=== PATIENT | female | born 1960 | race African-American/Black ===

== ENCOUNTER 2017-06-01 13:55 | Emergency (ER) | payer MEDICAID ==
[~2017-06-01] VITALS: Ht 154.9 cm; Wt 61.0 kg
[~2017-06-01 13:55] MED LIST: ALBU6.7H2 IH; ASCO500C15 PO; ATROV IH; HYDR12.54 PO; MOME13HF2 IH; [UNRECOGNIZED DRUG - REMARK]
[2017-06-01] MEDS ORDERED: IPRATROPIUM/ALBUTEROL 0.5-3(2.5)MG/3ML NEB HHN ONE ×2 (15:00→15:45)
[2017-06-01] MEDS ORDERED: METHYLPREDNISOLONE SOD SUCC 125 MG/2 ML VIAL IM ONE (15:00)
[2017-06-01 16:10] VITALS: BP 135/87
[2017-06-01] MEDS ORDERED: IBUPROFEN 600MG TABLET PO ONE (16:15)
== END 2017-06-01 17:44 | disposition home or self-care (01) ==
LOC: ER 14:52
DX: J45.901 Unspecified asthma with (acute) exacerbation (principal); Z88.0 Allergy status to penicillin; K21.9 Gastro-esophageal reflux disease without esophagitis; I10 Essential (primary) hypertension; F17.200 Nicotine dependence, unspecified, uncomplicated
CPT/HCPCS: 71010; 94640; 96372; 99283; J2930; Z7610; J7620

== ENCOUNTER 2017-06-17 14:54 | Emergency (ER) | payer MEDICAID ==
[~2017-06-17] VITALS: Ht 154.9 cm; Wt 63.0 kg
[2017-06-17] MEDS ORDERED: IPRATROPIUM BROMIDE (0.02%) 0.5MG/2.5ML NEB HHN STA (15:55)
[2017-06-17] MEDS ORDERED: ALBUTEROL (0.083%) 2.5MG/3ML NEB HHN STA (15:55)
[2017-06-17] MEDS ORDERED: PREDNISONE 20MG TABLET PO STA (15:55)
[2017-06-17 18:22] VITALS: BP 122/70
== END 2017-06-17 18:56 | disposition home or self-care (01) ==
LOC: ER 14:54
DX: J45.901 Unspecified asthma with (acute) exacerbation (principal); I10 Essential (primary) hypertension; Z88.0 Allergy status to penicillin
CPT/HCPCS: 71010; 81025; 94640; 99283; J7512; J7611; Z7610

== ENCOUNTER 2017-09-27 13:06 | Emergency (ER) | payer MEDICAID ==
[~2017-09-27] VITALS: Ht 157.5 cm; Wt 63.0 kg
[~2017-09-27 13:06] MED LIST changes: -ALBU6.7H2 IH; +ALBU6.7H3 IH
[2017-09-27] MEDS ORDERED: IPRATROPIUM/ALBUTEROL 0.5-3(2.5)MG/3ML NEB HHN ONE ×2 (14:30→17:15)
[2017-09-27 14:48] LABS: HEMATOCRIT. 43.5 % (36.0-48.0); HEMOGLOBIN. 14.9 g/dL (12.0-16.0); MEAN CORPUSCULAR HEMOGLOBIN 31.2 pg (28.0-32.0); MEAN CORPUSCULAR VOLUME 91.3 fL (81.0-99.0); PLATELET 243 x1000/uL (130-400); RED BLOOD CELL COUNT 4.77 mill/uL (4.2-5.4); RED CELL DISTRIBUTION WIDTH 13.7 % (11.6-14.6)
[2017-09-27 14:51] LABS: CHLORIDE 108 mEq/L (98-107)
[2017-09-27 14:57] LABS: CARBON DIOXIDE 23 mEq/L (21-32)
[2017-09-27 15:39] LABS: PLATELET ESTIMATE NORMAL
[2017-09-27 18:00] VITALS: BP 123/68
== END 2017-09-27 18:14 | disposition home or self-care (01) ==
LOC: ER 14:49
DX: I10 Essential (primary) hypertension (principal); J20.8 Acute bronchitis due to other specified organisms; J44.0 Chronic obstructive pulmonary disease with (acute) lower respiratory infection; Z88.0 Allergy status to penicillin
CPT/HCPCS: 36415; 71010; 80048; 85007; 85027; 94640; 99285; J7620; Z7610

== ENCOUNTER 2017-11-13 20:56 | Emergency (ER) | payer MEDICAID ==
[~2017-11-13] VITALS: Ht 157.5 cm; Wt 66.0 kg
[2017-11-13 22:53] VITALS: BP 174/120
== END 2017-11-14 02:00 | disposition left against medical advice (07) ==
LOC: ER 20:56
DX: R06.02 Shortness of breath (principal); Z53.21 Procedure and treatment not carried out due to patient leaving prior to being seen by health care provider

== ENCOUNTER 2017-11-14 19:49 | Emergency (ER) | payer MEDICAID ==
[~2017-11-14] VITALS: Ht 157.5 cm; Wt 65.0 kg
[2017-11-14] MEDS ORDERED: IPRATROPIUM/ALBUTEROL 0.5-3(2.5)MG/3ML NEB HHN ONE (23:00)
[2017-11-14] MEDS ORDERED: ALBUTEROL (0.083%) 2.5MG/3ML NEB HHN NR (23:09)
[2017-11-14] MEDS ORDERED: METHYLPREDNISOLONE SOD SUCC 125 MG/2 ML VIAL IV NR (23:09)
[2017-11-14] MEDS ORDERED: IPRATROPIUM BROMIDE (0.02%) 0.5MG/2.5ML NEB HHN NR (23:09)
[2017-11-14] MEDS ORDERED: IPRATROPIUM/ALBUTEROL 0.5-3(2.5)MG/3ML NEB HHN NR (23:15)
[2017-11-14] MEDS ORDERED: ALBUTEROL (0.5%) 2.5MG/0.5ML NEB HHN ONE (23:16)
[2017-11-14] MEDS ORDERED: ALBUTEROL (0.083%) 2.5MG/3ML NEB ONE (23:17)
[2017-11-14] MEDS ORDERED: IPRATROPIUM/ALBUTEROL 0.5-3(2.5)MG/3ML NEB ONE (23:17)
[2017-11-14 23:18] LABS: CHLORIDE 109 mEq/L (98-107)
[2017-11-14 23:23] LABS: BASOPHILS % 0.7 % (0.0-2.0); EOSINOPHILS % 0.7 % (0.0-5.0); HEMATOCRIT. 41.2 % (36.0-48.0); HEMOGLOBIN. 14.4 g/dL (12.0-16.0); LYMPHOCYTES % 8.2 % (20.0-50.0); MEAN CORPUSCULAR HEMOGLOBIN 31.2 pg (28.0-32.0); MEAN CORPUSCULAR VOLUME 89.6 fL (81.0-99.0); MEAN PLATELET VOLUME 8.1 fl (7.4-10.4); MONOCYTES % 10.4 % (2.0-8.0); PLATELET 331 x1000/uL (130-400); RED CELL DISTRIBUTION WIDTH 13.8 % (11.6-14.6)
[2017-11-14 23:27] LABS: PROTHROMBIN TIME 10.3 sec (9.4-11.6)
[2017-11-15] MEDS ORDERED: IPRATROPIUM/ALBUTEROL 0.5-3(2.5)MG/3ML NEB HHN ONE ×2 (01:00→05:45)
[2017-11-15 01:13] LABS: CLARITY URINE CLOUDY (CLEAR); COLOR URINE DARK YELLOW (YELLOW); KETONES URINE TRACE (NEGATIVE); LEUKOCYTE ESTERASE URINE NEGATIVE (NEGATIVE); NITRITE URINE NEGATIVE (NEGATIVE); OCCULT BLOOD URINE NEGATIVE (NEGATIVE); PROTEIN URINE 1+ (NEGATIVE); SPECIFIC GRAVITY URINE 1.034 (1.005-1.030)
[2017-11-15] MEDS ORDERED: FAMOTIDINE 20MG/2ML VIAL IV NR (01:15)
[2017-11-15] MEDS ORDERED: MAGNESIUM 2 G PREMIX 50 ML IV NR (01:15)
[2017-11-15] MEDS: AZITHROMYCIN 500 MG TABLET PO NR (01:28)
[2017-11-15 05:50] VITALS: BP 141/90
== END 2017-11-15 06:32 | disposition home or self-care (01) ==
LOC: ER 21:14
DX: J45.909 Unspecified asthma, uncomplicated (principal); N39.0 Urinary tract infection, site not specified; I10 Essential (primary) hypertension; F17.200 Nicotine dependence, unspecified, uncomplicated; Z88.0 Allergy status to penicillin
CPT/HCPCS: 36415; 71045; 80053; 81001; 85025; 85610; 87804; 94640; 96365; 96375; 99285; J2930; J7030; J7620; Z7610; J7611

== ENCOUNTER 2017-11-15 23:39 | Emergency (ER) | payer MEDICAID ==
[~2017-11-15] VITALS: Ht 157.5 cm; Wt 66.0 kg
[2017-11-16] MEDS ORDERED: ALBUTEROL (0.083%) 2.5MG/3ML NEB HHN STA (03:35)
[2017-11-16] MEDS ORDERED: IPRATROPIUM BROMIDE (0.02%) 0.5MG/2.5ML NEB HHN STA (03:35)
[2017-11-16] MEDS ORDERED: IPRATROPIUM/ALBUTEROL 0.5-3(2.5)MG/3ML NEB ONE (04:04)
[2017-11-16] MEDS ORDERED: ALBUTEROL (0.5%) 2.5MG/0.5ML NEB HHN ONE (04:04)
[2017-11-16 07:30] VITALS: BP 165/95
[2017-11-16] MEDS ORDERED: IBUPROFEN 600MG TABLET PO ONE (07:30)
== END 2017-11-16 07:48 | disposition home or self-care (01) ==
LOC: ER 23:39
DX: J45.901 Unspecified asthma with (acute) exacerbation (principal); R11.0 Nausea; R51 Headache; I10 Essential (primary) hypertension; Z88.0 Allergy status to penicillin
CPT/HCPCS: 71045; 94640; 99283; J3475; J3490; J7611; J7620

== ENCOUNTER 2018-02-01 01:20 | Emergency (ER) | payer MEDICAID ==
[~2018-02-01] VITALS: Ht 154.9 cm; Wt 64.0 kg
[2018-02-01 01:51] VITALS: BP 145/93
[2018-02-01] MEDS ORDERED: CYCLOBENZAPRINE 10MG TABLET PO ONE (07:45)
[2018-02-01] MEDS ORDERED: DEXAMETHASONE 10 MG/ML VIAL IM ONE (07:45)
[2018-02-01] MEDS ORDERED: KETOROLAC 60MG/2ML VIAL IM ONE (07:45)
== END 2018-02-01 08:01 | disposition home or self-care (01) ==
LOC: ER 02:19
DX: M54.5 Low back pain (principal); I10 Essential (primary) hypertension; J45.909 Unspecified asthma, uncomplicated; Z88.0 Allergy status to penicillin
CPT/HCPCS: 99281; Z7610; J1100; J1885

== ENCOUNTER 2018-12-24 05:08 | Emergency (ER) | payer MEDICAID ==
[~2018-12-24] VITALS: Ht 157.5 cm; Wt 65.0 kg
[~2018-12-24 05:08] MED LIST changes: -ALBU6.7H3 IH; +ALBU6.7H9 IH
[2018-12-24 05:26] VITALS: BP 165/103
== END 2018-12-24 08:26 | disposition left against medical advice (07) ==
LOC: ER 05:08
DX: Z53.21 Procedure and treatment not carried out due to patient leaving prior to being seen by health care provider (principal)

== ENCOUNTER 2019-01-12 06:40 | Emergency (ER) | payer MEDICAID ==
[~2019-01-12] VITALS: Ht 160 cm; Wt 64.0 kg
[2019-01-12] MEDS ORDERED: SODIUM CHLORIDE 0.9% 1,000 ML IV ONE (11:14)
[2019-01-12] MEDS ORDERED: ONDANSETRON HCL 4MG/2ML INJ IV STA (11:14)
[2019-01-12] MEDS ORDERED: MORPHINE SULFATE 4 MG/ML CPJ (NOT FOR IM USE) IV STA (11:14)
[2019-01-12 12:29] LABS: CHLORIDE 113 mEq/L (98-107)
[2019-01-12 12:30] LABS: BASOPHILS % 1.1 % (0.0-2.0); EOSINOPHILS % 7.3 % (0.0-5.0); HEMATOCRIT. 39.5 % (36.0-48.0); HEMOGLOBIN. 13.4 g/dL (12.0-16.0); LYMPHOCYTES % 49.2 % (20.0-50.0); MEAN CORPUSCULAR HEMOGLOBIN 31.2 pg (28.0-32.0); MEAN PLATELET VOLUME 8.6 fl (7.4-10.4); MONOCYTES % 8.6 % (2.0-8.0); NEUTROPHILS % 33.8 % (40.0-76.0); PLATELET 235 x1000/uL (130-400); RED BLOOD CELL COUNT 4.29 mill/uL (4.2-5.4); RED CELL DISTRIBUTION WIDTH 13.5 % (11.6-14.6)
[2019-01-12 12:36] LABS: CLARITY URINE CLEAR (CLEAR); COLOR URINE YELLOW (YELLOW); KETONES URINE NEGATIVE (NEGATIVE); LEUKOCYTE ESTERASE URINE NEGATIVE (NEGATIVE); NITRITE URINE NEGATIVE (NEGATIVE); OCCULT BLOOD URINE NEGATIVE (NEGATIVE); PROTEIN URINE NEGATIVE (NEGATIVE); UROBILINOGEN URINE 0.2 E.U./dL (0.2-1.0)
[2019-01-12 12:42] LABS: PARTIAL THROMBOPLASTIN TIME 27.1 sec (23.4-31.0)
[2019-01-12 14:37] VITALS: BP 156/87
== END 2019-01-12 15:04 | disposition home or self-care (01) ==
LOC: ER 06:40
DX: R10.32 Left lower quadrant pain (principal); I10 Essential (primary) hypertension
CPT/HCPCS: 36415; 71045; 74176; 80053; 81003; 83690; 85025; 85610; 85730; 93005; 96374; 96375; 99284; J2270; J2405; J7030; Z7610

== ENCOUNTER 2019-03-03 15:35 | Emergency (ER) | payer MEDICAID ==
[~2019-03-03] VITALS: Ht 157.5 cm; Wt 66.0 kg
[2019-03-03] MEDS ORDERED: ACETAMINOPHEN 325MG TABLET PO STA (16:08)
[2019-03-03] MEDS ORDERED: ASPIRIN 81MG TABLET PO ONE (16:15)
[2019-03-03 16:29] LABS: EOSINOPHILS % 6.2 % (0.0-5.0); HEMATOCRIT. 42.1 % (36.0-48.0); HEMOGLOBIN. 14.4 g/dL (12.0-16.0); LYMPHOCYTES % 32.3 % (20.0-50.0); MEAN CORPUSCULAR HEMOGLOBIN 30.8 pg (28.0-32.0); MEAN CORPUSCULAR VOLUME 89.8 fL (81.0-99.0); MEAN PLATELET VOLUME 8.3 fl (7.4-10.4); MONOCYTES % 8.9 % (2.0-8.0); NEUTROPHILS % 51.6 % (40.0-76.0); PLATELET 263 x1000/uL (130-400); RED BLOOD CELL COUNT 4.69 mill/uL (4.2-5.4); RED CELL DISTRIBUTION WIDTH 13.5 % (11.6-14.6)
[2019-03-03 16:31] LABS: CHLORIDE 111 mEq/L (98-107)
[2019-03-03 16:33] LABS: D-DIMER 0.26 mg/L FEU (<0.50); INR 0.9; PROTHROMBIN TIME 9.7 sec (9.6-11.0)
[2019-03-03 16:35] LABS: ETHANOL BLOOD < 10 mg/dL
[2019-03-03 16:48] LABS: HCG SCREEN NEGATIVE
[2019-03-03 18:00] VITALS: BP 134/86
[2019-03-03] MEDS ORDERED: HYDROCODONE/ACETAMINOPHEN 5/325MG TABLET PO ONE (18:00)
[2019-03-03 18:48] LABS: *AMPHETAMINES SCREEN URINE NEGATIVE (NEGATIVE); *BARBITURATES SCREEN URINE NEGATIVE (NEGATIVE); *BENZODIAZEPINES SCREEN URINE NEGATIVE (NEGATIVE); *COCAINE SCREEN URINE PRESUMTIVE POSITIVE (NEGATIVE); CANNABINOID URINE SCREEN NEGATIVE (NEGATIVE); METHADONE URINE SCREEN NEGATIVE (NEGATIVE); OPIATES URINE SCREEN PRESUMTIVE POSITIVE (NEGATIVE); PHENCYCLIDINE URINE SCREEN NEGATIVE (NEGATIVE)
== END 2019-03-03 19:15 | disposition home or self-care (01) ==
LOC: ER 15:35
DX: R07.9 Chest pain, unspecified (principal); F12.10 Cannabis abuse, uncomplicated; J45.909 Unspecified asthma, uncomplicated; F17.210 Nicotine dependence, cigarettes, uncomplicated; F14.10 Cocaine abuse, uncomplicated; Z88.0 Allergy status to penicillin; Z79.899 Other long term (current) drug therapy
CPT/HCPCS: 36415; 71045; 80053; 80305; 80320; 83690; 83880; 84484; 84703; 85025; 85379; 85610; 93005; 99284; Z7610; G0480

== ENCOUNTER 2019-08-01 07:37 | Emergency (ER) | payer MEDICAID ==
[~2019-08-01] VITALS: Ht 157.5 cm; Wt 65.0 kg
[2019-08-01] MEDS ORDERED: FAMOTIDINE 20MG TABLET PO ONE (09:00)
[2019-08-01] MEDS ORDERED: DIPHENHYDRAMINE 25MG CAPSULE PO ONE (09:00)
[2019-08-01] MEDS ORDERED: DEXAMETHASONE 10 MG/ML VIAL IM ONE (09:00)
[2019-08-01 09:34] VITALS: BP 142/78
== END 2019-08-01 09:34 | disposition home or self-care (01) ==
LOC: ER 07:37
DX: T63.481A Toxic effect of venom of other arthropod, accidental (unintentional), initial encounter (principal); R22.0 Localized swelling, mass and lump, head; I10 Essential (primary) hypertension; J45.909 Unspecified asthma, uncomplicated; F17.210 Nicotine dependence, cigarettes, uncomplicated; Z88.0 Allergy status to penicillin; Y92.018 Other place in single-family (private) house as the place of occurrence of the external cause
CPT/HCPCS: 96372; 99283; J1100; Q0163

== ENCOUNTER 2022-01-01 12:19 | Emergency (ER) | payer MEDICAID, OTHER ==
[~2022-01-01] VITALS: Ht 165.1 cm; Wt 70.0 kg
[2022-01-01 12:20] VITALS: BP 151/97
[2022-01-01] MEDS ORDERED: IPRATROPIUM BROMIDE (0.02%) 0.5MG/2.5ML NEB HHN STA (12:21)
[2022-01-01] MEDS ORDERED: PREDNISONE 20MG TABLET PO STA (12:21)
[2022-01-01] MEDS ORDERED: ALBUTEROL (0.083%) 2.5MG/3ML NEB HHN STA (12:21)
[2022-01-01] MEDS ORDERED: P50 MT (13:43)
[2022-01-01] MEDS ORDERED: ALBU6.7H9 INH (13:43)
== END 2022-01-01 14:12 | disposition home or self-care (01) ==
LOC: ER 12:19
DX: J45.901 Unspecified asthma with (acute) exacerbation (principal); I10 Essential (primary) hypertension
CPT/HCPCS: 71045; 93005; 94640; 99283; J7512

== ENCOUNTER 2025-07-25 14:56 | Emergency (ER) | payer MEDICARE, MEDICAID ==
[~2025-07-25] VITALS: Ht 167.6 cm; Wt 65.0 kg
[~2025-07-25 14:56] MED LIST changes: +ALBU6.7H3 IH; +ALBU6.7H3 INH; -ALBU6.7H9 IH; +ASCO500C14 PO; -ASCO500C15 PO; +MOME13HF12 IH; -MOME13HF2 IH; +P50 MT
[2025-07-25] MEDS: METHYLPREDNISOLONE SOD SUCC 125MG/2ML (ACT-O-VIAL) IV ONE (15:15)
[2025-07-25] MEDS ORDERED: ALBUTEROL (0.083%) 2.5MG/3ML NEB HHN ONE (15:15)
[2025-07-25 16:53] LABS: BASOPHILS % 0.8 % (0.0-2.0); EOSINOPHILS % 9.5 % (0.0-5.0); HEMATOCRIT. 40.9 % (36.0-48.0); HEMOGLOBIN. 13.8 g/dL (12.0-16.0); LYMPHOCYTES % 34.3 % (20.0-50.0); MEAN PLATELET VOLUME 8.1 fl (7.4-10.4); MONOCYTES % 7.1 % (2.0-8.0); NEUTROPHILS % 48.3 % (40.0-76.0); PLATELET 241 x1000/uL (130-400); RED BLOOD CELL COUNT 4.50 mill/uL (4.2-5.4); RED CELL DISTRIBUTION WIDTH 14.6 % (11.6-14.6)
[2025-07-25] MEDS: ALBUTEROL (0.083%) 2.5MG/3ML NEB HHN SCH (17:04)
[2025-07-25 17:05] VITALS: PULSE 88; RESP 25; O2SAT 96
[2025-07-25 17:07] LABS: CREATININE 0.9 mg/dL (0.6-1.0); UREA NITROGEN BLOOD 12 mg/dL (9-23)
[2025-07-25 17:08] LABS: TROPONIN I HIGH SENSITIVITY < 4 ng/L (3.0-34)
[2025-07-25 17:09] LABS: ASPARTATE AMINOTRANSFERASE 12 IU/L (<34); BILIRUBIN DIRECT 0.2 mg/dL (<=3.0); BILIRUBIN TOTAL 0.6 mg/dL (0.1-1.0); PROTEIN TOTAL 6.9 g/dL (6.0-8.3)
[2025-07-25] MEDS ORDERED: BENZ200C52 MT (18:04)
[2025-07-25] MEDS ORDERED: P50 MT (18:04)
[2025-07-25 18:41] VITALS: BP 131/85; PULSE 95; RESP 20; TEMP 37; O2SAT 96
== END 2025-07-25 18:44 | disposition home or self-care (01) ==
LOC: ER 14:56
DX: J44.89 Other specified chronic obstructive pulmonary disease (principal); I10 Essential (primary) hypertension; Z79.899 Other long term (current) drug therapy; Z79.51 Long term (current) use of inhaled steroids; Z88.0 Allergy status to penicillin
CPT/HCPCS: 99285; 96374; 71045; 80076; 80048; 83880; 85025; 84484; 36415; 94640; 93005; J2919; 94664; A4606

== ENCOUNTER 2025-08-11 01:43 | Emergency (ER) | payer MEDICARE, MEDICAID ==
[~2025-08-11] VITALS: Ht 165.1 cm; Wt 54.0 kg
[~2025-08-11 01:43] MED LIST changes: +BENZ200C52 MT
[2025-08-11 03:01] LABS: BASOPHILS % 0.8 % (0.0-2.0); EOSINOPHILS % 1.1 % (0.0-5.0); HEMATOCRIT. 40.7 % (36.0-48.0); HEMOGLOBIN. 13.7 g/dL (12.0-16.0); LYMPHOCYTES % 37.3 % (20.0-50.0); MEAN PLATELET VOLUME 8.4 fl (7.4-10.4); MONOCYTES % 6.6 % (2.0-8.0); NEUTROPHILS % 54.2 % (40.0-76.0); PLATELET 250 x1000/uL (130-400); RED BLOOD CELL COUNT 4.47 mill/uL (4.2-5.4); RED CELL DISTRIBUTION WIDTH 14.4 % (11.6-14.6)
[2025-08-11 03:13] LABS: CREATININE 0.8 mg/dL (0.6-1.0); UREA NITROGEN BLOOD 16 mg/dL (9-23)
[2025-08-11 03:15] LABS: TROPONIN I HIGH SENSITIVITY < 4 ng/L (3.0-34)
[2025-08-11] MEDS: METHYLPREDNISOLONE SOD SUCC 125MG/2ML (ACT-O-VIAL) IV ONE (03:15)
[2025-08-11] MEDS: MORPHINE SULFATE 4 MG/ML INJ (FOR IV/IM USE) IV ONE (03:15)
[2025-08-11] MEDS: ONDANSETRON HCL 4MG/2ML INJ IV ONE (03:15)
[2025-08-11 03:18] VITALS: PULSE 60; RESP 30; O2SAT 99
[2025-08-11] MEDS: ALBUTEROL (0.083%) 2.5MG/3ML NEB HHN ONE (03:18)
[2025-08-11 05:37] LABS: TROPONIN I HIGH SENSITIVITY < 4 ng/L (3.0-34)
[2025-08-11] MEDS ORDERED: IBUP-2028 MT (05:42)
[2025-08-11] MEDS ORDERED: ALBU18HF2 IH (05:42)
[2025-08-11] MEDS ORDERED: P50 MT (05:42)
[2025-08-11 06:05] VITALS: BP 143/78; PULSE 73; RESP 20; TEMP 36.8; O2SAT 100
== END 2025-08-11 06:10 | disposition home or self-care (01) ==
LOC: ER 01:43 → EDBEDREQTM 04:50 → EDBEDREQ 04:50 → EDBEDREQSVC 04:50 → EDBEDREQTM 04:53 → EDBEDREQSVC 04:53 → EDBEDREQ 04:53 → ER 06:10 → CMPBEDREQ 07:31
DX: R06.02 Shortness of breath (principal); R07.2 Precordial pain; I10 Essential (primary) hypertension; F14.90 Cocaine use, unspecified, uncomplicated; J44.89 Other specified chronic obstructive pulmonary disease; Z79.51 Long term (current) use of inhaled steroids; Z79.899 Other long term (current) drug therapy; Z88.0 Allergy status to penicillin
CPT/HCPCS: 99285; 96374; 96375; 71045; 80048; 83880; 85025; 85379; 84484; 36415; 94640; 93005; J2919; J2405; J2270; 94070; 94664; 98960

== ENCOUNTER 2025-08-21 08:45 | Emergency (ER) | payer MEDICARE, MEDICAID ==
[~2025-08-21] VITALS: Ht 165.1 cm; Wt 65.0 kg
[~2025-08-21 08:45] MED LIST changes: +ALBU18HF2 IH; +IBUP-2028 MT
[2025-08-21 08:49] VITALS: O2SAT 100
[2025-08-21] MEDS ORDERED: DIPHENHYDRAMINE 50MG CAPSULE PO ONE (09:00)
[2025-08-21] MEDS: DIPHENHYDRAMINE 25MG CAPSULE PO NR (09:15)
[2025-08-21] MEDS ORDERED: DIPH25CA83 MT (09:22)
[2025-08-21 09:40] VITALS: BP 154/82; PULSE 81; RESP 16; TEMP 37.2; O2SAT 100
== END 2025-08-21 09:44 | disposition home or self-care (01) ==
LOC: ER 08:45
DX: R21 Rash and other nonspecific skin eruption (principal); J45.909 Unspecified asthma, uncomplicated; I10 Essential (primary) hypertension; Z79.899 Other long term (current) drug therapy; Z88.0 Allergy status to penicillin
CPT/HCPCS: 99283; Q0163